=== PATIENT | male | born 1970 | race Asian ===

== ENCOUNTER 2016-06-30 16:03 | Emergency (ER) | payer MEDICAID ==
[~2016-06-30] VITALS: Ht 162.6 cm; Wt 59.0 kg
--- NOTE | 2016-06-30 16:03 | NUR ---
Patient was BIBA at this time and taken to bed 08.
[2016-06-30 16:06] VITALS: BP 136/100
--- NOTE | 2016-06-30 16:15 | NUR ---
PATIENT PRESENTS TO ED WITH C/O LLE PAIN INVOLVED IN TC . PT STATES . DENIES N/V/D; SKIN IS PINK/WARM/DRY; AAOX4 WITH EVEN AND STEADY GAIT; LUNGS CLEAR BL; HR EVEN AND REGULAR; PT DENIES ANY FEVER, CP, SOB, OR COUGH AT THIS TIME; PATIENT STATES PAIN OF 10/10 AT THIS TIME; VSS; PATIENT POSITIONED FOR COMFORT; HOB ELEVATED; BEDRAILS UP X2; BED DOWN. ER MD MADE AWARE OF PT STATUS.
[2016-06-30] MEDS ORDERED: IBUPROFEN 600 MG TAB PO ONE (16:25)
[2016-06-30] MEDS ORDERED: oxyCODONE/APAP 5/325 MG 1 TAB TAB PO ONE (16:25)
--- NOTE | 2016-06-30 16:30 | NUR ---
PT TO X-RAY VIA WHEEL CHAIR
--- NOTE | 2016-06-30 18:19 | NUR ---
Patient to OF.
--- NOTE | 2016-06-30 19:00 | NUR ---
Patient discharged with v/s stable. Written and verbal after care instructions given and explained. Patient alert, oriented and verbalized understanding of instructions. with . All questions addressed prior to discharge. ID band removed. Patient advised to follow up with PMD. Rx of NORCO AND ZOFRAN given. Patient educated on indication of medication including possible reaction and side effects. Opportunity to ask questions provided and answered.
[2016-06-30 19:01] VITALS: BP 120/81
== END 2016-06-30 19:00 | disposition home or self-care (01) ==
LOC: MED 16:03
DX: S80.12XA Contusion of left lower leg, initial encounter (principal); S20.219A Contusion of unspecified front wall of thorax, initial encounter; R03.0 Elevated blood-pressure reading, without diagnosis of hypertension; V43.52XA Car driver injured in collision with other type car in traffic accident, initial encounter; Y93.89 Activity, other specified; Y92.89 Other specified places as the place of occurrence of the external cause; Y99.8 Other external cause status
CPT/HCPCS: 71030; 73590; 93005; 99284